=== PATIENT | female | born 1975 | race Caucasian/White ===

== ENCOUNTER 2018-12-17 09:54 | Emergency (ER) | payer OTHER ==
[2018-12-17] MEDS: METHYLPREDNISOLONE 125 MG INJ IM (10:20)
[2018-12-17] MEDS: IBUPROFEN 800 MG TAB PO (10:20)
== END 2018-12-17 11:05 | disposition home or self-care (01) ==
LOC: FTE 09:54
DX: J40 Bronchitis, not specified as acute or chronic (principal)
CPT/HCPCS: 81025; 96372; 99284-25